=== PATIENT | male | born 1955 | race Caucasian/White ===

== ENCOUNTER 2017-01-21 08:19 | Inpatient (IN) | payer BC ==
--- NOTE | ~2017-01-21 | HP ---
History And Physical [id number] [place]. [address] NAME: CHRISTIN RIGGS : 55 STATUS : DIS IN PAT#: [id number] AGE: 61 ADM/REG DATE : 01/21/17 MR#: [id number] REPORT SERV DATE: 01/25/17 DICTATED BY: SUMI ROSAS DATE: 01/21/17 REPORT STATUS : Draft TRANSCRIBED BY: MODTristin DATE: 01/21/17 DATE OF ADMISSION: 01/21/2017 HISTORY OF PRESENT ILLNESS: This 61-year-old, nonsmoker and cardiology fellow, was admitted in transfer from [facility] for evaluation of two brief episodes of chest discomfort occurring over the last couple of evenings, lasting only seconds. An initial troponin was obtained at 0.05. He was moving a heavy truck on to a ramp by hand and over strained yesterday; his CPK is elevated but the MB band is fairly low compatible with rhabdomyolysis probably from over use while moving his truck. He has an infected tooth and has been on clindamycin therapy and went to the emergency room thinking that he was having an allergic reaction; "I felt bloated." He has been heavy all of his life and has had intermittent elevated blood sugar, but is on no diabetic medicines at this time. He is also on testosterone for low testosterone levels. Other medication includes aspirin, vitamin B12, and fish oil. His blood pressure has been intermittently elevated, but he is on no antihypertensive medication. ALLERGIES: OTHER THAN THE CLINDAMYCIN, HE HAS NO KNOWN ALLERGIES. ONLY SURGERY WAS AN APPENDECTOMY IN YEARS PAST. FAMILY HISTORY: Positive for heart disease. This gentleman is and has healthy children. There is no history of stroke or transient ischemic attacks. He denies any syncope or near syncope. At the present time, he is comfortable having no chest pain or symptoms of congestive heart failure including PND, orthopnea, or peripheral edema. EKG shows nonspecific lateral T-wave inversions. He had been told in years past, he had a systolic murmur but has never had an echocardiogram. REVIEW OF SYSTEMS: Otherwise, all negative. PHYSICAL EXAMINATION: VITAL SIGNS: Blood pressure is 160/90. HEENT: Head is normocephalic. He has a ruborous complexion. Eyes, PERRLA. Nose had no epistaxis. SKIN: Clear of ulcerations. NECK: Supple. CHEST: Clear. Good breath sounds and absence of rales, rhonchi, or wheezes. HEART: Had regular rhythm. Normal S1 and S2. A 1/6 systolic murmur. No gallops, or pericardial friction rubs. ABDOMEN: Obese and nontender. No hepatosplenomegaly or abnormal masses were noted. EXTREMITIES: Had no clubbing, edema, or cyanosis. NEUROLOGIC: Exam intact. He is oriented to time, place, and person. CLINICAL IMPRESSIONS: 1. Atypical chest pain with minimal troponin elevation - cannot exclude ischemic substrate History And Physical [address] [place]. [address] NAME: CHRISTIN RIGGS : 55 STATUS : DIS IN PAT#: [id number] AGE: 61 ADM/REG DATE : 01/21/17 MR#: [id number] REPORT SERV DATE: 01/25/17 DICTATED BY: SUMI ROSAS DATE: 01/21/17 REPORT STATUS : Draft TRANSCRIBED BY: BRANDY DATE: 01/21/17 with abnormal EKG as described. 2. Obesity. 3. Elevated blood pressure. 4. Past history of glucose elevation - not on diabetic medication. 5. Possible reaction to clindamycin. 6. Rhabdomyolysis with over use yesterday moving a truck. 7. Infected tooth - treated with clindamycin with possible reaction to clindamycin. 8. Systolic murmur. RECOMMENDATIONS: 1. Discontinue clindamycin. Try amoxicillin. 2. Heparin drip. 3. Beta ryan. 4. Aspirin. 5. Because of probable rhabdomyolysis from moving a truck yesterday, he will not be started on a statin agent. 6. I have fully discussed the risks, benefits, and options of cardiac catheterization with selective coronary arteriography with him and he wishes to proceed on 01/23/2017, if parameters have improved. NMST if CPK still elevated. 7. Echo. RB/BRANDY Sumi Rosas M.D. / [id number] CC: Sumi Rosas M.D.
[2017-01-21] MEDS ORDERED: ASAB PO (09:20)
[2017-01-21] MEDS ORDERED: FISH OIL300 MG PO (09:21)
[2017-01-21] MEDS ORDERED: CLINDA150 PO (09:22)
[2017-01-21] MEDS ORDERED: B121000P IM (09:23)
[2017-01-21] MEDS ORDERED: STRIANT30 MG IM (09:23)
[2017-01-21 11:30] LABS: BASOPHILS 0.3 %; BASOPHILS ABSOLUTE 0.03 10/3/uL (0.0-0.16); EOSINOPHILS ABSOLUTE 0.09 10/3/uL (0.0-0.53); HEMATOCRIT 52.6 % (40.0-51.0); HEMOGLOBIN 17.2 g/dL (13.6-17.8); IMMATURE GRANULOCYTES 0.3 %; IMMATURE GRANULOCYTES ABSOLUTE 0.03 10/3/uL (0.0-0.11); LYMPHOCYTES 24.6 %; LYMPHOCYTES ABSOLUTE 2.17 10/3/uL (0.67-4.30); MANUAL DIFF NO %; MEAN CORPUS HGB CONC 32.7 g/dL (32.0-36.0); MEAN CORPUSCULAR HEMOGLOB 28.5 pg (26.0-34.0); MEAN CORPUSCULAR VOLUME 87.2 fL (80-100); MEAN PLATELET VOLUME 10.2 fL (9.2-13.0); MONOCYTES 6.7 %; MONOCYTES ABSOLUTE 0.59 10/3/uL (0.21-1.20); NEUTROPHILS 67.1 %; NEUTROPHILS ABSOLUTE 5.92 10/3/uL (2.02-8.40); PLATELET COUNT 195 10/3/uL (150-400); RBC DISTRIBUTION WIDTH 14.6 % (12.0-16.0); RED CELL COUNT 6.03 10/6/uL (4.7-6.1); WHITE BLOOD CELLS 8.8 10/3/uL (4.5-10.5)
[2017-01-21 11:37] LABS: INTERNATIONAL NORMAL RATI 1.1 UNITS (-); PARTIAL THROMBO TIME 30.1 SEC (22.5-37.2); PROTIME (NOT ORD) 13.6 SEC (12.0-14.5)
[2017-01-22 05:54] LABS: BASOPHILS 0.3 %; BASOPHILS ABSOLUTE 0.03 10/3/uL (0.0-0.16); EOSINOPHILS 1.6 %; EOSINOPHILS ABSOLUTE 0.16 10/3/uL (0.0-0.53); HEMATOCRIT 53.9 % (40.0-51.0); HEMOGLOBIN 17.4 g/dL (13.6-17.8); IMMATURE GRANULOCYTES 0.3 %; IMMATURE GRANULOCYTES ABSOLUTE 0.03 10/3/uL (0.0-0.11); LYMPHOCYTES 26.3 %; LYMPHOCYTES ABSOLUTE 2.69 10/3/uL (0.67-4.30); MANUAL DIFF NO %; MEAN CORPUS HGB CONC 32.3 g/dL (32.0-36.0); MEAN CORPUSCULAR HEMOGLOB 28.3 pg (26.0-34.0); MEAN CORPUSCULAR VOLUME 87.8 fL (80-100); MEAN PLATELET VOLUME 10.5 fL (9.2-13.0); MONOCYTES 7.5 %; MONOCYTES ABSOLUTE 0.77 10/3/uL (0.21-1.20); NEUTROPHILS ABSOLUTE 6.54 10/3/uL (2.02-8.40); PLATELET COUNT 191 10/3/uL (150-400); RBC DISTRIBUTION WIDTH 14.7 % (12.0-16.0); RED CELL COUNT 6.14 10/6/uL (4.7-6.1); WHITE BLOOD CELLS 10.2 10/3/uL (4.5-10.5)
[2017-01-22 05:56] LABS: PARTIAL THROMBO TIME 38.3 SEC (22.5-37.2)
[2017-01-22 06:02] LABS: BUN (BLOOD UREA NITROGEN) 18 MG/DL (6-23); CALCIUM, SERUM 8.5 MG/DL (8.5-10.4); CHLORIDE, SERUM 104 MMOL/L (96-112); CK-MB 5.5 NG/ML; CO2 (CARBON DIOXIDE) 28 MMOL/L (24-34); CPK 343 U/L (0-200); CREATININE 1.17 MG/DL (0.70-1.30); GFR AFRICAN AMERICAN 78 ML/MIN (>=60); GFR NON AFRICAN AMERICAN 67 ML/MIN (>=60); GLUCOSE, SERUM 119 MG/DL (60-99); SODIUM, SERUM 141 MMOL/L (135-148)
[2017-01-22 06:03] LABS: CKMB INDEX (NOT ORD) 1.6
[2017-01-23 06:57] LABS: CK-MB 6.7 NG/ML
[2017-01-23 06:58] LABS: CKMB INDEX (NOT ORD) 1.7
[2017-01-23] MEDS ORDERED: COREG6 PO (14:12)
[2017-01-23] MEDS ORDERED: AMOXIL500 MG PO (14:12)
== END 2017-01-23 14:49 | disposition home or self-care (01) | DRG 558 ==
LOC: 5NO 08:19
PROVIDERS: Internal Medicine Cardiovascular Disease
DX: M62.82 Rhabdomyolysis (principal); Z68.42 Body mass index [BMI] 45.0-49.9, adult; E66.01 Morbid (severe) obesity due to excess calories; T36.8X5A Adverse effect of other systemic antibiotics, initial encounter; K04.7 Periapical abscess without sinus
CPT/HCPCS: 78492; 80048; 82550; 82553; 82962; 84484; 85025; 85610; 85730; 93005; 93017; A9270-GY; A9555; C8929; J2785; Q9957